=== PATIENT | male | born 1985 | race Caucasian/White ===

== ENCOUNTER → 2022-06-21 | Outpatient (CLI) | payer BC ==
[2022-06-21 09:43] LABS: HEMATOCRIT 49.2 % (42.0-52.0); HEMOGLOBIN 16.6 g/dL (13.5-18.0); LYMPH# 1.86 K/mm3 (1.50-4.00); MEAN CELL VOLUME 89 fl (78-100); MEAN CORPUSCULAR HEMOGLOBIN 30 pg (27-31); MEAN CORPUSCULAR HGB CONC 34 g/dL (33-37); MEAN PLATELET VOLUME 9.6 fl (7.4-10.4); PLATELET COUNT 220 K/mm3 (130-400); RED BLOOD COUNT 5.55 M/mm3 (4.20-5.60); RED CELL DISTRIBUTION WIDTH 11.4 % (11.5-14.5); WHITE BLOOD COUNT 4.9 K/mm3 (4.8-10.8)
[2022-06-21 09:49] LABS: ALBUMIN 4.7 g/dL (3.5-5.0); POTASSIUM 4.3 mmol/L (3.5-5.1); SODIUM 141 mmol/L (136-145)
[2022-06-21 09:50] LABS: CALCIUM 9.6 mg/dL (8.3-10.5)
[2022-06-21 09:51] LABS: GLUCOSE 94 mg/dL (75-110)
[2022-06-21 09:53] LABS: CARBON DIOXIDE 24 mmol/L (22-29); TOTAL BILIRUBIN 0.6 mg/dL (0.2-1.2)
[2022-06-21 10:08] LABS: TROPONIN-I < 0.030 ng/mL (<0.030)
[2022-06-21 10:26] LABS: ALT/SGPT 40 U/L (0-55); AST-SGOT 23 U/L (5-34)
[2022-06-21 10:27] LABS: D-DIMER 0.18 mg/L FEU (0.15-0.50)
== END ==
LOC: LAB 09:26
PROVIDERS: Nurse Practitioner Family
DX: U09.9 Post COVID-19 condition, unspecified (principal); R07.89 Other chest pain